=== PATIENT | female | born 1980 | race Asian ===

== ENCOUNTER → 2016-10-18 | Outpatient (CLI) | payer BC | LOC: FIMAGING 13:54 | PROVIDERS: ATTEND Obstetrics & Gynecology | DX: Z34.92 Encounter for supervision of normal pregnancy, unspecified, second trimester (principal); Z3A.19 19 weeks gestation of pregnancy ==

== ENCOUNTER → 2017-02-14 | Outpatient (CLI) | payer BC | LOC: FIMAGING 11:55 | PROVIDERS: ATTEND Obstetrics & Gynecology | DX: Z34.93 Encounter for supervision of normal pregnancy, unspecified, third trimester (principal); Z3A.36 36 weeks gestation of pregnancy ==

== ENCOUNTER 2017-03-08 02:35 | Inpatient (IN) | payer BC ==
[2017-03-08] MEDS ORDERED: EPSOM SALT 454 GM TP PRN (02:49)
[2017-03-08] MEDS ORDERED: OXYTOCIN/RINGERS LACTATE 1,000 ML IV PRN (02:49)
[2017-03-08] MEDS ORDERED: LR 1,000 ML IV PRN (02:49)
[2017-03-08] MEDS ORDERED: TERBUTALINE SULFATE 1 MG/ML VIAL IV PRN (02:49)
[2017-03-08] MEDS ORDERED: AMPICILLIN SODIUM 2 GM in NS 100 ML IV ONE (02:49)
[2017-03-08] MEDS ORDERED: OLIVE OIL 118 ML BTL MISC PRN (02:49)
[2017-03-08] MEDS ORDERED: AMMONIA AROMATIC 1 EACH AMP IH ONE (02:51)
[2017-03-08] MEDS ORDERED: MISOPROSTOL 200 MCG TAB ONE (02:51)
[2017-03-08] MEDS ORDERED: OLIVE OIL 118 ML BTL ONE (02:51)
[2017-03-08] MEDS ORDERED: LIDOCAINE 1% 300 MG/30 ML SDV ONE (02:51)
[2017-03-08] MEDS ORDERED: OXYTOCIN 10 UNIT/ML VIAL ONE (02:51)
[2017-03-08] MEDS ORDERED: TERBUTALINE SULFATE 1 MG/ML VIAL ONE (02:51)
[2017-03-08 03:09] LABS: % IMMATURE GRANULYOCYTES 0.5 % (0.0-1.1); ABSOLUTE IMMATURE GRANULOCYTES 0.05 10^3/uL (0.00-0.10); ADD DIFF? NO; ADD MORPH? NO; ADD SCAN? NO; ATYPICAL LYMPHOCYTE FLAG 0 (0-99); FRAGMENT RBC FLAG 0 (0-99); HEMATOCRIT 35.7 % (38.0-47.0); HEMOGLOBIN 11.6 g/dL (12.6-16.3); LEFT SHIFT FLG 0 (0-99); LIPEMIA HEMOLYSIS FLAG 80 (0-99); MEAN CELL HEMOGLOBIN 25.4 pg (27.9-34.1); MEAN CELL HEMOGLOBIN CONCENTR. 32.5 g/dL (32.4-36.7); MEAN CELL VOLUME 78.3 fL (81.5-99.8); MEAN PLATELET VOLUME 9.5 fL (8.7-11.7); PLATELET CLUMPS FLAG 10 (0-99); PLATELET COUNT 241 10^3/uL (150-400); RED BLOOD CELL COUNT 4.56 10^6/uL (4.18-5.33); RED CELL DISTRIBUTION WIDTH 14.4 % (11.5-15.2)
[2017-03-08] MEDS ORDERED: fentaNYL 2MCG/ML/BUP 0.1% RTU 100 ML BAG EP ONE (03:16)
[2017-03-08] MEDS ORDERED: PHENYLEPHRINE HCL 100 MCG/ML SYR ONE (03:17)
[2017-03-08] MEDS ORDERED: BUPIVACAINE 0.25% 30 ML SDV ONE (03:17)
[2017-03-08] MEDS ORDERED: fentaNYL 100 MCG/2 ML INJ ONE (03:18)
--- NOTE | 2017-03-08 03:21 | PDGENHP ---
History and Physical - Chief Complaint 36 y.o. @ 39 6/7 weeks in active labor - History of Present Illness 36 y.o. at 39 6/7 weeks in active labor. History Information - Allergies/Home Medication List Allergies/Adverse Reactions: No Known Allergies Allergy (Verified 06/14/13 20:53) Home Medications: Vit27&Calcium/Iron/FA [] 1 tab PO DAILY 06/25/15 [Last Taken 1 Day Ago] I have personally reviewed and updated: family history, medical history, social history, surgical history - Past Medical History Additional medical history: infertility - Surgical History Reports: no pertinent surgical hx - Social History Smoking Status: Never smoked Alcohol Use: None Drug Use: None Review of Systems ROS: 10pt was reviewed & negative except for what was stated in HPI & below Constitutional: Reports: no symptoms EENMT: Reports: no symptoms Cardiac: Reports: no symptoms Respiratory: Reports: no symptoms Gastrointestinal: Reports: no symptoms Genitourinary: Reports: no symptoms Muscolosketal: Reports: no symptoms Skin: Reports: no symptoms Neurological: Reports: no symptoms Hematologic/Lymphatic: Reports: no symptoms Immunologic/Allergy: Reports: no symptoms Physical Exam Constitutional: uncomfortable Ears, Nose, Mouth, Throat: hearing normal Cardiovascular: no murmur, rub, or gallop Respiratory: no respiratory distress, clear to auscultation Gastrointestinal: soft, non-tender abdomen, no palpable masses Skin: warm, normal color Musculoskeletal: full muscle strength Neurologic: AAOx3, sensation intact bilaterally Psychiatric: interacting appropriately Lab Data & Imaging Review 03/08/17 03:00 WBC 9.22 10^3/uL (3.80-9.50) 03/08/17 03:00 RBC 4.56 10^6/uL (4.18-5.33) 03/08/17 03:00 Hgb 11.6 g/dL (12.6-16.3) L 03/08/17 03:00 Hct 35.7 % (38.0-47.0) L 03/08/17 03:00 MCV 78.3 fL (81.5-99.8) L 03/08/17 03:00 MCH 25.4 pg (27.9-34.1) L 03/08/17 03:00 MCHC 32.5 g/dL (32.4-36.7) 03/08/17 03:00 RDW 14.4 % (11.5-15.2) 03/08/17 03:00 Plt Count 241 10^3/uL (150-400) 03/08/17 03:00 MPV 9.5 fL (8.7-11.7) 03/08/17 03:00 Neut % (Auto) 60.6 % (39.3-74.2) 03/08/17 03:00 Lymph % (Auto) 29.9 % (15.0-45.0) 03/08/17 03:00 [place] % (Auto) 7.5 % (4.5-13.0) 03/08/17 03:00 Eos % (Auto) 1.0 % (0.6-7.6) 03/08/17 03:00 Baso % (Auto) 0.5 % (0.3-1.7) 03/08/17 03:00 Nucleat RBC Rel Count 0.0 % (0.0-0.2) 03/08/17 03:00 Absolute Neuts (auto) 5.58 10^3/uL (1.70-6.50) 03/08/17 03:00 Absolute Lymphs (auto) 2.76 10^3/uL (1.00-3.00) 03/08/17 03:00 Absolute Monos (auto) 0.69 10^3/uL (0.30-0.80) 03/08/17 03:00 Absolute Eos (auto) 0.09 10^3/uL (0.03-0.40) 03/08/17 03:00 Absolute Basos (auto) 0.05 10^3/uL (0.02-0.10) 03/08/17 03:00 Absolute Nucleated RBC 0.00 10^3/uL (0-0.01) 03/08/17 03:00 Immature Gran % 0.5 % (0.0-1.1) 03/08/17 03:00 Immature Gran # 0.05 10^3/uL (0.00-0.10) 03/08/17 03:00 Assessment & Plan Assessment: 36 y.o. female presents at 39 6/7 weeks in active labor. VSS- afebrile NST- reactive CAT I GBS POSITIVE Plan: Admit patient to L&D. EFM and VS per protocol GBS prophylaxis ESTER per patient request Anticipate .
--- NOTE | 2017-03-08 03:26 | OBPROG ---
OBG Labor Progress Note Assessment/Plan: Assessment: 36 y.o. female at 39 6/7 weeks in active labor. VSS- afebrile NST- reactive CAT I GBS POS Plan: Admit patient to L&D. EFM and VS per protocol. Begin GBS prophylaxis. Anticipate . 03/08/17 03:23 Subjective: Patient uncomfortable with uterine contractions. Patient requested nitrous oxide and ESTER for pain with labor. present at bedside and supportive. Objective: 03/08/17 03:00 - SVE Dilation (cm): 8 Effacement (%): 100 Station: -2 - Physical Exam General Appearance: WD/WN, alert, moderate distress Estimated Weight: 2501-3400g EENT: normal ENT inspection Neck: non-tender, full range of motion, normal inspection Respiratory: lungs clear, normal breath sounds Cardiac/Chest: regular rate, rhythm Abdomen: non-tender, soft Extremities: normal range of motion, non-tender, normal inspection Back: Normal inspection Skin: normal color, warm/dry Neuro/Psych: alert, normal mood/affect, oriented x 3 Oxytocin Orders Assessment - Pre-Induction/Augmentation Assessment Gestational Age: 561 week(s) and 5 day(s) - Heart Rate Pattern [place] FHR Baseline (bpm): 140 FHR Category: 1 FHR Pattern Variability: Moderate FHR Accelerations: Present ICD10 Worksheet Patient Problems: Problems Problem Status Onset macrosomia during in third trimester Acute
--- NOTE | 2017-03-08 04:18 | PREANESOB ---
Obstetric Pre-Anesthesia Info - General Info Proposed Procedure: Labor and delivery : 3 Para: 1 WBD: 40 - Info Status: Full Term Monitors: External FHR Baseline (bpm): 130 FHR Pattern: Reassuring - Labor Status Cervical Dilation per last OB SVE: 9 Station per last OB SVE: -2 Indications for Labor Analgesia: Pain Control Labor Epidural: Proposed Anesthesia ROS: Prior labor epidural. Allergies/Adverse Reactions: Allergy/AdvReac Type Severity Reaction Status Date / Time No Known Allergies Allergy Verified 06/14/13 20:53 Home Medications: Medication Instructions Recorded Vit27&Calcium/Iron/FA 1 tab PO DAILY 06/25/15 [] Ibuprofen [Motrin (*)] 600 mg PO Q6 PRN #60 tab 06/28/15 Cephalexin [Keflex] 500 mg PO TID 5 Days 07/31/15 Phenazopyridine HCl [Pyridium] 200 mg PO TID #6 tab 07/31/15 Visit Medications: Generic Name Dose Route Start Last Admin Trade Name Freq PRN Reason Stop Dose Admin Ampicillin Sodium 1 gm/ Sodium 100 mls @ 200 mls/hr 03/08/17 07:00 Chloride IV 04/07/17 06:59 Q4H MERLENE Protocol Lactated Ringer's 1,000 mls @ 0 mls/hr 03/08/17 02:49 Lr IV 09/04/17 02:48 PRN PRN SEE PROTOCOL CONDITIONS Protocol Per Protocol Oxytocin/Lactated Ringer's 1,000 mls @ 150 mls/hr 03/08/17 02:49 Pitocin 20 Units/Lr (Premix) IV PRN PRN Post- bleeding Ibuprofen 600 mg 03/08/17 02:49 Motrin PO 09/04/17 02:48 Q6HRS PRN post , inflammation Magnesium Sulfate 454 gm 03/08/17 02:49 Epsom Salt TP 09/04/17 02:48 Q1H PRN perineal discomfort [place] Oil 118 ml 03/08/17 02:49 Sweet Oil MISC 09/04/17 02:48 ONCE PRN preneal massage Terbutaline Sulfate 0.25 mg 03/08/17 02:49 Brethine IV 09/04/17 02:48 ONCE PRN Tachysystole Discontinued Medications Generic Name Dose Route Start Last Admin Trade Name Freq PRN Reason Stop Dose Admin Ammonia (Aromatic Spirit) Confirm 03/08/17 02:51 Ammonia Aromatic Administered 03/08/17 02:52 Dose 1 each IH .STK-MED ONE Bupivacaine HCl Confirm 03/08/17 03:17 Sensorcaine 0.25% Sdv Administered 03/08/17 03:18 Dose 30 ml .ROUTE .STK-MED ONE Ephedrine Sulfate Confirm 03/08/17 02:51 Ephedrine Sulfate Administered 03/08/17 02:52 Dose 50 mg .ROUTE .STK-MED ONE Fentanyl Confirm 03/08/17 03:18 Sublimaze Administered 03/08/17 03:19 Dose 100 mcg .ROUTE .STK-MED ONE Fentanyl/Bupivacaine HCl Confirm 03/08/17 03:16 Fentanyl/Bupivacaine/Ns 2 Mcg/Ml 0.1% (Premix Administered 03/08/17 03:17 Dose 100 ml EP .STK-MED ONE Ampicillin Sodium 2 gm/ Sodium 110 mls @ 220 mls/hr 03/08/17 02:49 03/08/17 03:07 Chloride IV 03/08/17 03:18 110 mls ONCE ONE Administration Protocol Lidocaine HCl Confirm 03/08/17 02:51 Lidocaine Hcl 1% Administered 03/08/17 02:52 Dose 300 mg .ROUTE .STK-MED ONE Misoprostol Confirm 03/08/17 02:51 Cytotec Administered 03/08/17 02:52 Dose 800 mcg .ROUTE .STK-MED ONE [place] Oil Confirm 03/08/17 02:51 Sweet Oil Administered 03/08/17 02:52 Dose 118 ml .ROUTE .STK-MED ONE Oxytocin Confirm 03/08/17 02:51 Pitocin Administered 03/08/17 02:52 Dose 40 unit .ROUTE .STK-MED ONE Phenylephrine HCl Confirm 03/08/17 03:17 Neosynephrine Administered 03/08/17 03:18 Dose 1,000 mcg .ROUTE .STK-MED ONE Terbutaline Sulfate Confirm 03/08/17 02:51 Brethine Administered 03/08/17 02:52 Dose 1 mg .ROUTE .STK-MED ONE - Anesthesia History Response to Local Anesthetics: Normal Anesthesia & Operative History: No Prior Problems Family Anesthesia History: Negative - Social History Substance Use/Abuse: Denies - Focused Exam Blood Pressure: 104/52 Heart Rate: 81 Height/Weight (Nursing): Height 165.1 cm Weight 63.503 kg Physical Exam: Within normal limits. ASA Status: II Labs: 03/08/17 03:00 Patient ABO/Rh B POSITIVE 03/08/17 03:00 - Plan Anesthetic Plan: CSE Consent Signed and on Chart: Yes Patient/Guardian Understands and Agrees to Plan: Yes Urgent/Emergent Case: Anes eval completed preop but documented later for safe timely pt care (Written consent signed after epidural.)
--- NOTE | 2017-03-08 04:18 | POSTANESTH ---
Post Anesthetic Evaluation Cardiovascular Status: Normal, Stable Respiratory Status: Normal, Stable, Similar to Pre-op Cond. Level of Consciousness/Mental Status: Can Participate in Eval, Alert and Oriented Pain Control: Adequate, Prn Tx Ordered Nausea/Vomiting Control: Adequate, Prn Tx Ordered Complications Possibly Related to Anesthesia: None Noted
[2017-03-08] MEDS ORDERED: ONDANSETRON 4 MG/2 ML VIAL IVP PRN (04:19)
[2017-03-08] MEDS ORDERED: PHENYLEPHRINE HCL 100 MCG/ML SYR IVP PRN (04:19)
[2017-03-08] MEDS ORDERED: LR 500 ML IV SCH (04:30)
[2017-03-08] MEDS ORDERED: fentaNYL 2MCG/ML/BUP 0.1% RTU 100 ML EP SCH (04:30)
--- NOTE | 2017-03-08 06:24 | OBDEL ---
Info Type: Vaginal GBS+: Yes Antibiotic Used for + GBS: Ampicillin Number of Antibiotic Doses Given: 1 Indications for Delivery: Spontaneous Labor Vaginal Delivery - Labor and Delivery Onset of Contractions Date: 03/07/17 Onset of Contractions Time: 23:00 Onset of Contractions Type: Spontaneous Rupture of Membranes Date: 03/08/17 Rupture of Membranes Time: 03:57 Rupture of Membranes Type: Artificial Amniotic Fluid Color: Clear Dilation Complete Date: 03/08/17 Dilation Complete Time: 05:45 Placenta Delivery Date: 03/08/17 Placenta Delivery Time: 06:04 Total Hours of Labor: 7 Non-surgical Procedures: Amniotomy Episiotomy: Midline Laceration: 1st Degree Repair: 3-0, Vicryl Vaginal Sponge Count Correct: Yes (10) Vaginal Needle Count Correct: Yes Vaginal Sweep Performed: Yes EBL: 300 Delivery Events: None - Medications Labor Augmentation/Induction Methods Used: None Data Aguirre Delivery Date: 03/08/17 Delivery Time: 05:58 NGHIA: 03/09/17 Gestational Age: 39 week(s) and 6 day(s) Sex of : Female Score (1 Min): 9 Score (5 Min): 9 ICD10 Worksheet Patient Problems: Problems Problem Status Onset (normal spontaneous vaginal delivery) Acute macrosomia during in third trimester Acute - ICD10 Problem Qualifiers (1) (normal spontaneous vaginal delivery)
[2017-03-08] MEDS ORDERED: AMPICILLIN SODIUM 1 GM in NS 100 ML IV SCH (07:00)
[2017-03-08] MEDS: IBUPROFEN 600 MG TAB PO PRN ×3 (07:39→20:01)
[2017-03-09] MEDS: IBUPROFEN 600 MG TAB PO PRN ×4 (02:39→22:05)
--- NOTE | 2017-03-09 08:15 | OBPP ---
Progress Note Assessment/Plan: Assessment: 36 y.o. female s/p PPD #1. Recovering well. . GBS POS Plan: Routine orders. consult PRN. 03/08/17 03:23 03/09/17 08:12 Subjective: Reports feeling well with mild cramping and perineal soreness. Encouraged use of ice packs, dermaplast, Tucks and sitz baths. well. Ambulating without vertigo. Eating and drinking without nausea or vomiting. Appropriate mood with good support system. Objective: 03/08/17 03:00 Patient ABO/Rh B POSITIVE 03/08/17 03:00 Temp Pulse Resp BP Pulse Ox 37.1 C 84 16 100/72 97 03/08/17 20:00 03/08/17 20:00 03/08/17 20:00 03/08/17 20:00 03/08/17 20:00 Uterine Position/Fundal Height: Umbilicus -1 Uterine Tone: Firm Physical Exam - Physical Exam General Appearance: WD/WN, alert, no apparent distress EENT: normal ENT inspection Neck: non-tender, full range of motion, normal inspection Respiratory: lungs clear, normal breath sounds Cardiac/Chest: regular rate, rhythm Abdomen: non-tender, soft Extremities: non-tender, normal inspection Back: Normal inspection Skin: normal color, warm/dry Neuro/Psych: alert, normal mood/affect, oriented x 3
[2017-03-09 19:34] VITALS: BP 96/68; PULSE 88; RESP 17; TEMP 98.2; O2SAT 95
[2017-03-10] MEDS: IBUPROFEN 600 MG TAB PO PRN (06:38)
--- NOTE | 2017-03-10 08:42 | OBGCSDC ---
General Delivery Information - General Info : 3 Para: 2 Delivery Physician/CNM: Mona Garcia Admission Date: 03/08/17 Labs: Patient ABO/Rh B POSITIVE 03/08/17 03:00 Hct 35.7 % (38.0-47.0) L 03/08/17 03:00 Vaginal - Diagnosis Labor: Spontaneous Rupture of Membranes Type: Artificial Amniotic Fluid Color: Clear Episiotomy: Midline Laceration: 1st Degree Repair: 3-0, Vicryl Delivery Events: None - Operations/Procedures Non-surgical Procedures: Amniotomy L&D Analgesia/Anesthesia Type: Epidural - Hospital Course Intrapartum: Uncomplicated at term : Routine care. Rh pos, Rub I - Delivery Non-surgical Procedures: Amniotomy L&D Analgesia/Anesthesia Type: Epidural [place] Data Agu[place]re Delivery Date: 03/08/17 Delivery Time: 05:53 NGHIA: 03/09/17 Gestational Age: 40 week(s) and 1 day(s) Sex of : Female Weight (gm): 2806.603 g Score (1 Min): 9 Score (5 Min): 9 Discharge Information - Discharge Information Discharge Medications: Ibuprofen Condition: Good Instruction/Follow Up: Four Weeks, Six Weeks Discharge Physician/CNM: Jessa Renee
== END 2017-03-10 11:30 | disposition home or self-care (01) | DRG 775 ==
LOC: FLD 02:35 → OBSVTOIN 02:35 → FOB 08:52
PROVIDERS: ADMIT Midwife; ATTEND Obstetrics & Gynecology
PROC: 0HQ9XZZ Repair Perineum Skin, External Approach (ICD-10-PCS; principal; 2017-03-08)
PROC: 10E0XZZ Delivery of Products of Conception, External Approach (ICD-10-PCS; principal; 2017-03-08)
PROC: 10907ZC Drainage of Amniotic Fluid, Therapeutic from Products of Conception, Via Natural or Artificial Opening (ICD-10-PCS; principal; 2017-03-08)
DX: O70.0 First degree perineal laceration during delivery (principal); O99.820 Streptococcus B carrier state complicating pregnancy; Z3A.39 39 weeks gestation of pregnancy; Z37.0 Single live birth
CPT/HCPCS: J0290; J2370; J2590; J3010; J3105